=== PATIENT | male | born 1995 | race African-American/Black ===

== ENCOUNTER → 2020-04-06 13:14 | Outpatient (BNVA) | payer OTHER, SELFPAY | PROVIDERS: Visit Provider Internal Medicine | DX: S40.871A Other superficial bite of right upper arm, initial encounter (principal); W50.3XXA Accidental bite by another person, initial encounter; Z77.21 Contact with and (suspected) exposure to potentially hazardous body fluids | CPT/HCPCS: 90715; 99202 ==